=== PATIENT | male | born 1980 | race American Indian/Alaskan Native ===

== ENCOUNTER 2018-06-21 11:13 | Outpatient (CLI) | payer OTHER ==
--- NOTE | 2018-06-21 13:21 | Ultrasound Report ---
ULTRASOUND TESTICULAR DOPPLER COMPLETE History: Right testicular pain. Technique: Trans-scrotal ultrasound with spectral doppler interrogation. Findings: Both testes and epididymides are normal size, contour and echotexture. No hydrocele or varicocele. No mass or pathologic calcifications. 5 mm right epididymal head cyst is noted. Doppler interrogation depicts symmetric arterial flow to both testes. IMPRESSION: Tiny right epididymal head cyst, otherwise, unremarkable testicular ultrasound.
== END 2018-06-21 11:14 | disposition home or self-care (01) ==
LOC: US 11:13
PROVIDERS: ATTEND General Practice
DX: N50.3 Cyst of epididymis (principal)
CPT/HCPCS: 93975